=== PATIENT | female | born 1990 | race Two or more races ===

== ENCOUNTER → 2024-04-09 | Outpatient (CLI) | payer OTHER ==
[2024-04-09 15:44] LABS: C REACTIVE PROTEIN QUANTITATIV < 0.40 MG/DL (<1.0); LDH LACTATE DEHYDROGENASE 257 U/L (120-246)
[2024-04-09 15:45] LABS: RHEUMATOID FACTOR QUANT 6.2 IU/ML (<14)
[2024-04-09 16:05] LABS: HEPATITIS B SURFACE ANTIGEN NEGATIVE (NEGATIVE)
[2024-04-09 16:18] LABS: HIV 1&2 SCREEN NEGATIVE (NEGATIVE)
[2024-04-09 16:26] LABS: HEPATITIS C VIRUS ABY INDEX 0.03 INDEX (<0.8)
[2024-04-11 09:46] LABS: HEPATITIS B CORE ANTIBODY IGG NON-REACTIVE (NON-REACTIVE)
[2024-04-11 15:22] LABS: ANA SCREEN, IFA NEGATIVE (NEGATIVE)
[2024-04-12 00:37] LABS: CYCLIC CITRULLINATED PEPTIDE 31 UNITS (<20)
== END ==
LOC: M PLALAB 13:04
PROVIDERS: ATTEND Internal Medicine Infectious Disease
DX: R50.9 Fever, unspecified (principal); M79.10 Myalgia, unspecified site